=== PATIENT | female | born 1945 | race African-American/Black ===

== ENCOUNTER 2019-08-15 10:53 | Emergency (ER) | payer MEDICARE, MEDICAID, SELFPAY ==
--- NOTE | ~2019-08-15 | CT_ITS ---
EXAMINATION: CT abdomen pelvis wo con DATE: 08/15/2019 11:41 INDICATION: Fever and pain. TECHNIQUE: Computed tomography (CT) of the abdomen and pelvis was performed without intravenous contr ast. The dose-length product was 825.95 mGy-cm. Automated exposure control and iterative reconstructi on technique were employed. COMPARISON: None. FINDINGS: There is left lower lobe atelectasis/scarring. Heart size normal. No significant pleural or pericardial effusion. Small hiatal hernia. Mild thickening of the adrenal glands without discrete ma ss. Calcified granuloma of the liver. The spleen, pancreas, and right kidney are unremarkable. There is a 2 mm nonobstructing left renal stone. There are gallstones. There is moderate diffuse atherosclerosis there are degenerative changes of the hips and lumbar spine . Nonobstructive bowel gas pattern. Small fat-containing umbilical hernia. IMPRESSION: 1. Nonobstructing left nephrolithiasis. 2: Cholelithiasis. 3: Left lower lobe atelectasis/scarring. Reviewed, dictated and finalized at location B. [employer]
[2019-08-15 11:00] VITALS: BP 130/110; PULSE 97; RESP 16; TEMP 37.9; O2SAT 98
[2019-08-15 11:28] VITALS: BP 130/110; PULSE 97; RESP 16; TEMP 37.9; O2SAT 98
[2019-08-15 11:32] LABS: Basophils Percent Auto 0.5 % (0.2-1.2); Eosinophils Absolute Auto 0.4 K/mm3 (0-0.3); Eosinophils Percent Auto 6.1 % (0-4.4); Hemoglobin 11.9 g/dL (12.0-15.0); Immature Granulocyte Absolute 0.01 K/mm3 (0.00-0.031); Immature Granulocyte Percent A 0.2 % (0-0.5); Lymphocytes Absolute Auto 0.65 K/mm3 (0.9-3.2); Lymphocytes Percent Auto 10.2 % (18.3-44.2); Mean Corpuscular HGB Conc 32.2 g/dl (32-36); Mean Corpuscular Hemoglobin 30.9 pg (26-34); Mean Corpuscular Volume 96.1 fl (80-100); Mean Platelet Volume 9.4 fl (7.4-10.4); Monocytes Absolute Auto 0.5 K/mm3 (0.1-0.6); Monocytes Percent Auto 7.5 % (2.6-8.5); Neutrophils Absolute Auto 4.8 K/mm3 (1.3-6.7); Neutrophils Percent Auto 75.5 % (45.5-73.1); Platelet Count Result 232 k/mm3 (150-375); Red Blood Count 3.85 M/mm3 (4.2-5.4); Red Cell Distribution Width 12.8 % (11.5-14.5); White Blood Count 6.4 K/mm3 (4.5-10.0)
--- NOTE | 2019-08-15 11:32 | ED.BACK ---
HPI - Back Pain/Injury General Chief Complaint: Back Pain/Injury Stated Complaint: Back Pain Time Seen by Provider: 08/15/19 11:12 Source: patient Mode of arrival: ambulatory Limitations: no limitations History of Present Illness HPI Narrative: Patient is a 73-year-old female who presents to emergency department for evaluation of low back pain coupled with chills and sweats low-grade fever. Patient notes mild aching pain across the lower lumbar region that does not radiate. Patient does note nausea but denies emesis diarrhea urinary symptoms. Patient was seen a few days ago at the urgent care started on Macrobid but she has been on since the weekend and notes no improvement. Related Data Allergies Allergy/AdvReac Type Severity Reaction Status Date / Time No Known Allergies Allergy Unverified 11/03/16 16:59 Review of Systems Review of Systems: All systems reviewed & are unremarkable except as noted in HPI and below PMFSH Past Medical History Medical History Arthritis Exam Narrative: Exam Narrative: GENERAL: Well-appearing, well-nourished, and in no acute distress. HEAD: Normocephalic, atraumatic. EYES: PERRLA and EOMI. ENT: Nares clear, no rhinorrhea or epistaxis. Mucous membranes moist. Oropharynx without tonsillar hypertrophy exudate or other lesions. NECK: Supple. No adenopathy or masses. CHEST: Clear to auscultation. No respiratory distress. No wheezes rales or rhonchi HEART: Regular rate and rhythm. No murmur heard. Normal peripheral pulses. ABDOMEN: Soft, nontender, nondistended EXTREMITIES: Normal range of motion. No edema. Tenderness across the lower lumbar spine SKIN: Warm, dry, no rash. NEURO: No focal deficits. Alert and oriented x3. Cranial nerves II through XII grossly intact PSYCH: Normal mood and affect. Course Course Emergency Course: Patient in the room in no distress aware of case findings treatment plan and diagnosis Vital Signs Vital signs: Vital Signs Temperature 100.3 F H 08/15/19 11:00 Pulse Rate 97 08/15/19 11:00 Respiratory Rate 16 08/15/19 11:00 Blood Pressure 130/110 H 08/15/19 11:00 Pulse Oximetry 98 08/15/19 11:00 Temperature 98.7 F 08/15/19 12:26 Pulse Rate 97 08/15/19 11:28 Respiratory Rate 16 08/15/19 11:28 Blood Pressure 130/110 H 08/15/19 11:28 Pulse Oximetry 98 08/15/19 11:28 MDM - Back Pain/Injury MDM Narrative Medical decision making narrative: Patients pain is positional in nature and localized to back without signs of cord compression or cauda equina based on neurological exam, skeletal exam and history. Patient could be getting over her urinary tract infection as the etiology of her symptoms. No pulsatile masses noted on exam. Patient ambulates with steady gait and is stable for outpatient management given case findings. Lab Data Result diagrams: 08/15/19 11:20 08/15/19 11:20 Labs: Lab Results 08/15/19 08/15/19 08/15/19 Range/Units 11:20 11:20 11:20 WBC 6.4 (4.5-10.0) K/mm3 RBC 3.85 L (4.2-5.4) M/mm3 Hgb 11.9 L (12.0-15.0) g/dL Hct 37.0 (37.0-47.0) % MCV 96.1 (80-100) fl MCH 30.9 (26-34) pg MCHC 32.2 (32-36) g/dl RDW 12.8 (11.5-14.5) % Plt Count 232 (150-375) k/mm3 MPV 9.4 (7.4-10.4) fl Immature Gran % (Auto) 0.2 (0-0.5) % Neut % (Auto) 75.5 H (45.5-73.1) % Lymph % (Auto) 10.2 L (18.3-44.2) % [place] % (Auto) 7.5 (2.6-8.5) % Eos % (Auto) 6.1 H (0-4.4) % Baso % (Auto) 0.5 (0.2-1.2) % Lymph # (Auto) 0.65 L (0.9-3.2) K/mm3 [place] # (Auto) 0.5 (0.1-0.6) K/mm3 Eos # (Auto) 0.4 H (0-0.3) K/mm3 Baso # (Auto) 0.0 (0.0-0.1) K/mm3 Abs Immat Gran (auto) 0.01 (0.00-0.031) K/mm3 Absolute Neuts (auto) 4.8 (1.3-6.7) K/mm3 Absolute Nucleated RBC 0.0 (0.0-0.012) K/mm3 Nucleated RBC % 0.0 (0.0-0.2) % Sodium 138 (137-145) mmol
[2019-08-15 11:43] LABS: Alanine Aminotransferase 12 U/L (4-35); Albumin Level 4.1 g/dL (3.5-5.1); Alkaline Phosphatase 100 U/L (38-126); Aspartate Amino Transferase 22 U/L (14-36); Bilirubin,Total 0.4 mg/dL (0.2-1.3); Blood Urea Nitrogen 19 mg/dL (7-17); Calcium 9.2 mg/dL (8.4-10.2); Carbon Dioxide 29 mmol/L (22-30); Chloride 103 mmol/L (98-107); Estimated CRCL calculation 52 ml/min; Estimated Glomerular Filt Rate > 60; Glucose 85 mg/dL (65-105); Lipase 35 U/L (23-300); Potassium 3.6 mmol/L (3.4-5.0); Sodium 138 mmol/L (137-145)
[2019-08-15 11:45] LABS: Add Urine Microscopic? YES; Appearance Urine Clear (Clear); Bilirubin Urine Negative (Negative); Blood Urine 1+ (Negative); Color Urine Yellow (Yellow); Glucose Urine UA Negative (Negative); Ketones Urine 1+ mg/dL (Negative); Leukocyte Esterase Ur Trace LEU/UL (Negative); Mucus Urine Rare /lpf; Nitrate Urine Negative (Negative); Protein Urine Negative (Negative); Specific Grav Ur 1.024 (1.001-1.035); Squamous Epithelial Cell Urine Few /hpf (Few); WBC Urine 0-3 /hpf
[2019-08-15] MEDS: SODIUM CHLORIDE 0.9% IV 1,000 ML 999 ML IV CONT (11:57)
[2019-08-15 12:21] VITALS: TEMP 37.8
[2019-08-15 12:26] VITALS: TEMP 37.1
[2019-08-15] MEDS: KETOROLAC 15 MG/ML VIAL (*BKC) IV PUSH (13:30)
[2019-08-15 13:40] VITALS: BP 135/70; PULSE 67; RESP 12; O2SAT 99
== END 2019-08-15 13:41 | disposition home or self-care (01) ==
PROVIDERS: Emergency Medicine Emergency Medical Services; Emergency Provider Emergency Medicine; PCP Internal Medicine
DX: M54.5 Low back pain (principal); M19.90 Unspecified osteoarthritis, unspecified site; K80.20 Calculus of gallbladder without cholecystitis without obstruction; N20.0 Calculus of kidney
CPT/HCPCS: 36415; 74176; 80053; 81001; 83690; 85025; 87804; 96361; 96374; 96375; 99284; J0131; J1885; J7030

== ENCOUNTER 2019-08-29 10:16 | Outpatient (CLI) | payer MEDICARE, MEDICAID, SELFPAY ==
--- NOTE | ~2019-08-29 | MR_ITS ---
EXAMINATION: MR lumbar spine wo con EXAM DATE: 08/29/2019 11:13 INDICATION: Chronic low back pain radiating to buttocks. Bilateral leg pain. TECHNIQUE: Multi-sequential, multiplanar MR images of the lumbar spine were obtained without contrast . Sagittal T1, T2, T2 fat saturation images. Axial T2 weighted images. There is no prior study for comparison. FINDINGS: Mild to moderate disc disease at L5-S1 with 2 mm retrolisthesis. There is mild disc disease L3-4 and L4-5 with 2-3 mm anterolisthesis at both of these levels. The conus medullaris terminates a t the L1/2 level and has normal signal intensity and morphology. There are no suspicious marrow sign al abnormalities. Paraspinal soft tissue is unremarkable. Level by level evaluation: T12-L1: Disc does not extend beyond the endplate margin. Facet arthropathy: Minimal. Neural foraminal stenosis: No stenosis. Central canal stenosis: No stenosis. L1-L2: There is a minimal diffuse disc bulge. Facet arthropathy: Mild. Neural foraminal stenosis: Mild to moderate left, mild right. Central canal stenosis: No stenosis. L2-L3: There is a mild diffuse disc bulge. Facet arthropathy: Moderate . Ligamentum flavum enlargement. Neural foraminal stenosis: Moderate left, mild to moderate right. Central canal stenosis: Mild to moderate. L3-L4: There is a mild to moderate diffuse disc bulge. Facet arthropathy: Moderate to severe . Ligamentum flavum enlargement. Neural foraminal stenosis: Mild to moderate right, mild left. Central canal stenosis: Severe. L4-L5: There is a large diffuse disc bulge. Facet arthropathy: Moderate to severe. Neural foraminal stenosis: Moderate bilateral. Central canal stenosis: Moderate to severe, particularly lateral recesses. L5-S1: There is a moderate diffuse disc bulge. Facet arthropathy: Mild to moderate. Neural foraminal stenosis: Moderate right, mild to moderate left. Central canal stenosis: Mild to moderate. IMPRESSION: 1. Significant central canal stenosis L3-4 and L4-5 with grade 1 anterolistheses at these levels. Reviewed, dictated and finalized at location A. IMPRESSION: 1. Significant central canal stenosis L3-4 and L4-5 with grade 1 anterolisthes es at these levels.
== END 2019-08-29 10:17 | disposition home or self-care (01) ==
PROVIDERS: PCP Internal Medicine; Visit Provider Internal Medicine
DX: M54.5 Low back pain (principal)
CPT/HCPCS: 72148

== ENCOUNTER → 2023-02-07 10:26 | Outpatient (CLI) | payer MEDICARE, MEDICAID, SELFPAY ==
--- NOTE | ~2023-02-07 | MR_ITS ---
MRI of the lumbar spine Clinical History: Spinal stenosis Technique: Axial T2-weighted images, and sagittal T1-weighted, T2-weighted, and and T2 fat-sat images were acquired. COMPARISON: 08/29/2019 Findings: No fracture identified. Minimal grade 1 anterolisthesis of L4 over L5 present. Minimal grad e 1 anterolisthesis of L3 over L4 present. No suspicious bone marrow signal abnormality seen. At L1-L2, there is no disc bulge or herniation. There is moderate facet arthropathy. No spinal canal stenosis. There is moderate bilateral neural foraminal narrowing. At L2-L3, there is minimal disc bulge with moderate to advanced facet arthropathy. There is mild to m oderate central canal stenosis. There is severe bilateral neural foraminal narrowing. L3-L4, there is disc bulge and severe facet arthropathy, severe central canal stenosis/thecal sac com pression. There is moderate bilateral neural foraminal narrowing. At L4-L5, there is disc bulge and severe facet arthropathy, severe central canal stenosis/thecal sac compression. There is severe left neural foraminal narrowing, and moderate to severe right neural for aminal narrowing. L5-S1, there is disc bulge and mild facet arthropathy. No central canal stenosis. There is severe rig ht neural foraminal narrowing, and moderate left neural foraminal narrowing. Paravertebral soft tissues are unremarkable. Impression: Severe degenerative spondylosis, as detailed above. Findings are probably worst at L3-L4 and L4-L5. Reviewed, dictated and finalized at [facility]. Impression: Severe degenerative spondylosis, as detailed above. Findings are probably worst at L3-L4 and L4-L5.
== END ==
PROVIDERS: PCP Internal Medicine; Visit Provider Anesthesiology Pain Medicine
DX: M48.062 Spinal stenosis, lumbar region with neurogenic claudication (principal); M47.896 Other spondylosis, lumbar region
CPT/HCPCS: 72148

== ENCOUNTER 2025-06-07 08:45 | Emergency (ER) | payer MEDICARE, MEDICAID, SELFPAY ==
--- NOTE | ~2025-06-07 | XR_ITS ---
Examination: XR chest 2V Clinical History: SOA Comparison: None Technique: PA and Lateral Findings: Heart size upper limit of normal. Tiny patchy opacity right base. No acute bony abnormality. IMPRESSION: 1. Tiny right basilar atelectasis and/or airspace opacity. Reviewed, dictated and finalized at location R. [employer]
--- OUTSIDE RECORDS SUMMARY | 2025-06-07 08:49 | XMS_ITS | Clinical Summary ---
Author Organization [facility] [employer] Address [address] [place] [address] Care Team Providers Care Fitter Mechanic Name Role Phone Merritt Ontiveros MD Primary Care Provider [phone] Source Comments [facility],non-owned Affiliates and Associated Physician Practices is amultiple site organization consisting of ambulatory clinics and hospital sitesin [place], [place], [place] and [place]. This disclosure is being madepursuant to the Care Everywhere program and may not contain all information available regarding this patient. Last updated 18.[facility] [employer] Allergies No known active allergies Medications * Be aware that medications may not be up to date on this document. Alwaysverify current medications with the patient. citalopram (CELEXA) 20 MG tablet Take 20 mg by mouth once daily Reported on 07/22/2016 Active lisinopril-hydr oCHLOROthiazide (PRINZIDE; ZESTORETIC) 10-12.5 MG tablet Take 1 Tab by mouth once daily 07/22/2016 Active montelukast (SINGULAIR) 10 MG tablet Take 1 Tab by mouth once daily 0 07/22/2016 Active ferrous sulfate EC 325 (65 FE) MG tablet Take 1 Tab by mouth 3 times daily with meals 90 Tab 07/22/2016 Active meclizine (ANTIVERT) 12.5 MG tablet Take 1 tablet by mouth 3 times daily as needed 60 tablet 04/14/2017 Active Active Problems Problem Noted Date Diagnosed Date Nephrolithiasis 07/22/2016 Neutropenia 07/22/2016 Anemia 07/22/2016 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 Overview (07/22/2016): Seen on chest x-ray from [facility] 07/04/2016 Diaphragmatic hernia without obstruction or gang samina 07/05/2016 Vitamin D deficiency 07/05/2016 Acute recurrent pansinusitis 07/05/2016 Migraine 12/18/2013 Hypertension Depression with anxiety Hyperlipidemia Immunizations Immunization Administration Dates Next Due FLU VACCINE QUAD IIV4 SPLIT 0.25 ML IM 7 PNEUMOCOCCAL PPSV23 07/07/2016,12/18/2013 Family History Medical History Relation Name Comments Hypertension Father Hypertension Sister 1 Hypertension Sister 2 Relation Name Status Comments Father Maternal Grandfather Maternal Grandmother Mother Paternal Grandfather Paternal Grandmother Sister 1 Sister 2 Social History Tobacco Use Types Packs/Day Years Used Date Smoking Tobacco: Every Day Cigarettes 0.5 20 Smokeless Tobacco: Never Tobacco Cessation:Ready to Q uit: Yes; Counseling Given: Yes Alcohol Use Standard Drinks/Week Comments No 0 (1 standard drink = 0.6 oz pur e alcohol) Comments No Sex and Gender Information Value Date Recorded Sex Assigned at Not on file Legal Sex Female 4:15 PM CDT Gender Identity Not on file Sexual Orientation Not on file Last Filed Vital Signs Vital Sign Reading Time Taken Comments Blood Pressure 133/83 07/22/2016 10:30 AM CASH APPLICATIONS MANAGER Pulse 83 07/22/2016 10:30 AM CASH APPLICATIONS MANAGER Temperature 36.9 C (98.4 F) 07/22/2016 10:30 AM CASH APPLICATIONS MANAGER Respiratory Rate - - Oxygen Saturation - - Inhaled Oxygen Concentration - - Weight 86.4 kg (190 lb 6.4 oz) 07/22/2016 10:30 AM CASH APPLICATIONS MANAGER Height 165.1 cm (5' 5) 07/22/2016 10:30 AM CASH APPLICATIONS MANAGER Body Mass Index 31.68 07/22/2016 10:30 AM CASH APPLICATIONS MANAGER Plan of Treatment Health Maintenance Due Date Last Done Comments BONE DENSITY TESTING 1945 MEDICARE AWV 12 MONTHS 1945 DTAP/TDAP/TD VACCINES (1 - Tdap) 11/04/1962 ZOSTER VACCINE (1 of 2) 11/04/1993 PNEUMOCOCCAL VACCINE 50+ (2 of 2 - PCV) 07/07/2017 07/07/2016, 12/18/2013 Respiratory Syncytial Virus (RSV) Vaccine Pt: or over 60 yrs (1 - 1-dose 75+ series) 11/04/2018 DEPRESSION SCREENING 06/13/2024 COVID-19 VACCINE ( season) 2025 12/01/2021, 04/25/2021, 09/01/2020, Additional history exists INFLUENZA VACCINE (#1) 2025 , 03/31/2018, 07/07/2016, Additional history exists HEPATITIS B VACCINE Aged Out No longe r eligible based on patient's age to complete this topic HIB VACCINE Aged Out No longer eligi ble based on patient's age to complete this topic HPV VACCINE Aged Out No longer eligi ble based on patient's age to complete this topic MENINGOCOCCAL (Group B) VACCINE SHARED DECISION-MAKING Aged Out No longer eligible based on patient's age to complete this topic MENINGOCOCCAL GROUPS A/C/Y/W VACCINE Aged Out No longer eligible based on patient's age to complete this topic Goals Goal Patient Goal Type Associated Problems Recent Progress Patient-Stated? Author Blood Pressure < 140/90 Blood Pressure 133/83(2016 10:30 AM CASH APPLICATIONS MANAGER) No Claudia Javier MA Quit smoking / using tobacco Lifestyle No Claudia Javier MA Insurance MEDICARE MEDICAID - [place] Care Teams Fitter Mechanic Relationship Specialty Start Date End Date Merritt Ontiveros MD [address] [place] [address] PCP - General Internal Medicine 06/11/24
--- OUTSIDE RECORDS SUMMARY | 2025-06-07 08:49 | XMS_ITS | Clinical Summary ---
Author Organization [facility] Address [address] [place] [address] Phone Care Team Providers Care Comber Fixer Name Role Phone Merritt Ontiveros MD Primary Care Provider [phone] Allergies No known active allergies Medications No known medications Active Problems Problem Noted Date Diagnosed Date Depression with anxiety 10/28/2024 Hyperlipidemia 12/03/2022 Leukopenia 12/03/2022 Bilateral carpal tunnel syndrome 08/03/2021 Dyslipidemia 01/10/2019 Essential hypertension 01/09/2017 Anemia 07/22/2016 Acute recurrent pansinusitis 07/05/2016 Diaphragmatic hernia without obstruction or gang samina 07/05/2016 Social History Tobacco Use Types Packs/Day Years Used Date Smoking Tobacco: Never Assessed Comments Unknown Sex and Gender Information Value Date Recorded Sex Assigned at Not on file Legal Sex Female 12:22 AM CDT Gender Identity Not on file Sexual Orientation Not on file Last Filed Vital Signs Vital Sign Reading Time Taken Comments Blood Pressure 126/81 10/28/2024 12:39 PM CDT Pulse 71 10/28/2024 12:39 PM CDT Temperature 36.8 C (98.2 F) 10/28/2024 12:39 PM CDT Respiratory Rate 20 10/28/2024 12:39 PM CDT Oxygen Saturation 96% 10/28/2024 12:39 PM CDT Inhaled Oxygen Concentration - - Weight 77.1 kg (170 lb) 10/28/2024 12:39 PM CDT Height 165.1 cm (5' 5) 03/02/2024 12:17 PM CDT Body Mass Index 28.29 03/02/2024 12:17 PM CDT Plan of Treatment Health Maintenance Due Date Last Done Comments DEXA Bone Density 1945 Hepatitis C Virus (HCV) Screening 1945 TdaP Immunization 1945 Zoster Immunization (1 of 2) 11/04/1993 Respiratory Syncytial Virus (RSV) Immunization (Adult) (1 - 1-dose 75+ series) 11/04/2018 Medicare Initial AWV [id number] 09/11/2024 Influenza Immunization (#1) 02/11/202505/13, 03/31/2018, 07/07/2016, Additional history exists SARS-COV-2 Immunization (2024- season) 2025 12/01/2021, 04/25/2021, 09/01/2020, Additional history exists Pneumococcal Immunization (50+ years) Completed 05/29/2024, 07/07/2016, 12/18/2013 Hepatitis B Immunization Aged Out No longer eligible based on patient's age to complete this topic Human Papillomavirus (HPV) Immunization (No Doses Required) Completed Meningococcal Immunization (ACWY) Aged Out No longer eligible based on patient's age to complete this topic Rotavirus Immunization Aged Out No lo nger eligible based on patient's age to complete this topic Insurance MEDICARE C [employer] [place]ICAID [place] Care Teams Comber Fixer Relationship Specialty Start Date End Date Merritt Ontiveros MD [address] [place] [address] PCP - General Internal Medicine 03/02/24
--- OUTSIDE RECORDS SUMMARY | 2025-06-07 08:49 | XMS_ITS | Encounter Summary ---
Author Organization [facility] Address [address] [place] [address] Care Team Providers Care Account Services Coordinator Name Role Phone Kiara Stokes MD Primary Care Provider [phone] Merritt Ontiveros MD Primary Care Provider [phone] Encounter Details Date Type Department Care Team (Late st Contact Info) Description 12/18/2013 SS Outpatient Visit EXTERNAL NON-SS DEPT Kiara Stokes MD [address] [place] [phone] Social History Tobacco Use Types Packs/Day Years Used Date Smoking Tobacco: Every Day Cigarettes 0.5 20 Smokeless Tobacco: Never Alcohol Use Standard Drinks/Week Comments No 0 (1 standard drink = 0.6 oz pur e alcohol) Comments No Sex and Gender Information Value Date Recorded Sex Assigned at Not on file Legal Sex Female 4:15 PM CDT Gender Identity Not on file Sexual Orientation Not on file documented as of this encounter Plan of Treatment Not on file documented as of this encounter Visit Diagnoses Not on filedocumented in this encounter Care Teams Account Services Coordinator Relationship Specialty Start Date End Date Kiara Stokes MD PCP - General Family Medicine 12/06/13 06/10/24 Merritt Ontiveros MD [address] [place] [id number] PCP - General Internal Medicine 06/11/24 documented as of this encounter
--- OUTSIDE RECORDS SUMMARY | 2025-06-07 09:36 | XMS_ITS | Clinical Summary ---
Author Organization [facility] [employer] Address [address] [place] [address] Care Team Providers Care Generator Mechanic Name Role Phone Merritt Ontiveros MD Primary Care Provider [phone] Source Comments [facility],non-owned Affiliates and Associated Physician Practices is amultiple site organization consisting of ambulatory clinics and hospital sitesin [place], [place] and [place]. This disclosure is being madepursuant to the Care Everywhere program and may not contain all information available regarding this patient. Last updated 18.[facility] [employer] Allergies No known active allergies Medications * [...] [facility] 07/04/2016 Diaphragmatic hernia without obstruction or gang [...] Comments Blood Pressure 133/83 07/22/2016 10:30 AM COMPLETIONS MANAGER Pulse 83 07/22/2016 10:30 AM COMPLETIONS MANAGER Temperature 36.9 C (98.4 F) 07/22/2016 10:30 AM COMPLETIONS MANAGER Respiratory Rate - - Oxygen Saturation - - Inhaled Oxygen Concentration - - Weight 86.4 kg (190 lb 6.4 oz) 07/22/2016 10:30 AM COMPLETIONS MANAGER Height 165.1 cm (5' 5) 07/22/2016 10:30 AM COMPLETIONS MANAGER Body Mass Index 31.68 07/22/2016 10:30 AM COMPLETIONS MANAGER Plan of Treatment Health Maintenance Due [...] < 140/90 Blood Pressure 133/83(2016 10:30 AM COMPLETIONS MANAGER) No Claudia Javier MA Quit smoking / using tobacco Lifestyle No Claudia Javier MA Insurance MEDICARE MEDICAID - [place] Care Teams Generator Mechanic Relationship Specialty Start Date End Date Merritt Ontiveros MD [address] [place] [address] PCP - General Internal Medicine 06/11/24
--- OUTSIDE RECORDS SUMMARY | 2025-06-07 09:36 | XMS_ITS | Encounter Summary ---
Author Organization [facility] Address [address] [address] Care Team Providers Care Mechanical Piping Designer Name Role Phone Kiara Stokes MD Primary Care Provider [phone] Merritt Ontiveros MD Primary Care Provider Encounter Details Date Type Department Care Team (Late st Contact Info) Description 12/18/2013 SS Outpatient Visit EXTERNAL NON-SS DEPT Kiara Stokes MD [address] [place] [phone] Social History Tobacco Use Types Packs/Day Years [...] on filedocumented in this encounter Care Teams Mechanical Piping Designer Relationship Specialty Start Date End Date Kiara Stokes MD PCP - General Family Medicine 12/06/13 06/10/24 Merritt Ontiveros MD [address] [place] [id number] PCP - General Internal Medicine 06/11/24 documented as of this encounter
[2025-06-07 09:39] VITALS: BP 148/80; PULSE 93; RESP 17; TEMP 39.3; O2SAT 98
[2025-06-07] MEDS: ACETAMINOPHEN 500 MG TABLET 1000 MG PO (09:59)
[2025-06-07] MEDS: SODIUM CHLORIDE 0.9% IV 400 ML 999 ML IV CONT (09:59)
[2025-06-07] MEDS: SODIUM CHLORIDE 0.9% IV 1,000 ML 999 ML IV CONT ×2 (09:59)
[2025-06-07 10:00] LABS: Hematocrit 34.1 % (37.0-47.0); Hemoglobin 11.2 g/dL (12.0-15.0); Immature Granulocyte Percent A 0.5 % (0-0.5); Lymphocytes Absolute Auto 0.72 K/mm3 (0.9-3.2); Mean Corpuscular HGB Conc 32.8 g/dl (32-36); Mean Corpuscular Hemoglobin 32.4 pg (26-34); Mean Corpuscular Volume 98.6 fl (80-100); Nucleated Red Blood Cells Absolute Auto 0.000 K/mm3 (0.0-0.012); Nucleated Red Blood Cells Perc 0.0 % (0.0-0.2); Platelet Count Result 211 k/mm3 (150-375); Red Blood Count 3.46 M/mm3 (4.2-5.4); White Blood Count 4.3 K/mm3 (4.5-10.0)
[2025-06-07 10:13] LABS: INR 1.1; Prothrombin Time 13.8 Seconds (11.1-14.7)
[2025-06-07 10:14] LABS: Partial Thromboplastin Time 28.1 Seconds (22.3-36.8)
--- NOTE | 2025-06-07 10:20 | ED_ITS ---
HPI - General Adult General Chief complaint: Unspecified Stated complaint: not feeling good Time Seen by Provider: 06/07/25 09:30 History of Present Illness HPI narrative: Patient is an 79-year-old female who presents ER with weakness, cough, and fever. Patient had a fall last week and has had some right-sided anterior chest pain. She had evaluation and no fracture was found. She started having cough over last few days. No nausea or vomiting. Patient febrile to 102.8? F here. No known sick contacts. The worse the illness began today. Related Data Allergies Allergy/AdvReac Type Severity Reaction Status Date / Time No Known Allergies Allergy Verified 06/07/25 08:49 Review of Systems 2 Review of Systems: All systems reviewed & are unremarkable except as noted in HPI and below Constitutional: Constitutional: Reports no additional constitutional complaints ENT: Reports system reviewed and no additional complaints, except as documented Cardiovascular: Cardiovascular: Reports no additional cardiovascular complaints Respiratory: Respiratory: Reports no additional respiratory complaints Gastrointestinal: Gastrointestinal: Reports no additional gastrointestinal complaints [facility] Past Medical History Medical History (Updated 06/07/25 @ 12:48 by Jaden Norman MD) Hypertension Arthritis Surgical History Surgical History (Updated 06/07/25 @ 10:50 by Jaden Norman MD) History of appendectomy Exam 2 Narrative: GENERAL: Ill-appearing, well-nourished, and in mild distress. HEAD: Normocephalic, atraumatic. EYES: PERRL and EOMI. ENT: Mucous membranes moist. CHEST: Clear to auscultation. No respiratory distress. Mild tenderness palpation right anterior chest wall HEART: Regular rate and rhythm. Normal peripheral pulses. ABDOMEN: Soft, nontender, nondistended. EXTREMITIES: Normal range of motion. No edema. SKIN: Warm, dry, no rash. NEURO: Alert and oriented x3. PSYCH: Anxious appearing with normal thought content. Course Course Emergency Course: Fever treated with Tylenol. Patient is COVID positive. She ambulates with a steady gait and no hypoxia. She will be prescribed Paxil the home. Recommend scheduled Tylenol to keep fever at [place]. Received aggressive hydration in the ER. Vital Signs Vital signs: Vital Signs Temperature 102.8 F H 06/07/25 09:39 Pulse Rate 93 06/07/25 09:39 Respiratory Rate 17 06/07/25 09:39 Blood Pressure 148/80 H 06/07/25 09:39 Pulse Oximetry 98 06/07/25 09:39 Oxygen Delivery Room Air 06/07/25 09:39 Temperature 100.4 F H 06/07/25 10:48 Pulse Rate 92 06/07/25 10:48 Respiratory Rate 20 06/07/25 10:50 Blood Pressure 133/71 06/07/25 10:48 Pulse Oximetry 100 06/07/25 10:48 Oxygen Delivery Room Air 06/07/25 09:39 MDM Differential Diagnosis Differential Diagnosis: Pneumonia, sepsis, COVID, influenza, JOSE, dehydration Medical Records I have reviewed the following patient records and this information was taken into consideration when formulating the assessment and plan.: previous labs and previous ER visits Lab Data MDM Lab Attestation statement: I personally reviewed the patient's lab results. 06/07/25 09:49 06/07/25 09:49 Labs: Lab Results 06/07/25 06/07/25 Range/Units 09:49 11:09 WBC 4.3 L (4.5-10.0) K/mm3 RBC 3.46 L (4.2-5.4) M/mm3 Hgb 11.2 L (12.0-15.0) g/dL Hct 34.1 L (37.0-47.0) % MCV 98.6 (80-100) fl MCH 32.4 (26-34) pg MCHC 32.8 (32-36) g/dl RDW 13.0 (11.5-14.5) % Plt Count 211 (150-375) k/mm3 MPV 9.3 (7.4-10.4) fl Immature Gran % (Auto) 0.5 (0-0.5) % Neut % (Auto) 71.9 (45.5-73.1) % Lymph % (Auto) 16.6 L (18.3-44.2) % [place] % (Auto) 10.1 H (2.6-8.5) % Eos % (Auto) 0.2 (0-4.4) % Baso % (Auto) 0.7 (0.2-1.2) % Lymph # (Auto) 0.72 L (0.9-3.2) K/mm3 [place] # (Auto) 0.4 (0.1-0.6) K/mm3 Eos # (Auto) 0.0 (0-0.3) K/mm3 Baso # (Auto) 0.0 (0.0-0.1) K/mm3 Abs Immat Gran (auto) 0.02 (0.00-0.031) K/mm3 Absolute Neuts (auto) 3.1 (1.3-6.7) K/mm3 Absolute Nucleated RBC 0.000 (0.0-0.012) K/mm3 Nucleated RBC % 0.0 (0.0-0.2) % PT 13.8 (11.1-14.7) Seconds INR 1.1 APTT 28.1 (22.3-36.8) Seconds Sodium 134 L (137-145) mmol/L Potassium 3.8 (3.4-5.0) mmol/L Chloride 102 (98-107) mmol/L Carbon Dioxide 27 (22-30) mmol/L Anion Gap 5 (4-12) mmol/L BUN 18 H (7-17) mg/dL Creatinine 0.92 (0.7-1.0) mg/dL Estim Creat Clear Calc 42 ml/min Estimated GFR 59 (59 - ) Glucose 91 (65-110) mg/dL Lactic Acid 0.7 (0.7-2.0) mmol/L Calcium 8.9 (8.4-10.2) mg/dL Total Bilirubin 0.7 (0.2-1.3) mg/dL AST 31 (14-36) U/L ALT 16 (6-35) U/L Alkaline Phosphatase 110 (38-126) U/L C-Reactive Protein 2.6 H (<1.0) mg/dL Total Protein 7.3 (6.3-8.2) g/dL Albumin 3.9 (3.5-5.1) g/dL Urine Color Yellow (Yellow) Urine Appearance Cloudy H (Clear) Urine pH >=9.0 H (5.0-9.0) Ur Specific [place] 1.017 (1.001-1.035) Urine Protein Trace (Negative) mg/dL Urine Glucose (UA) Negative (Negative) mg/dL Urine Ketones Negative (Negative) mg/dL Ur Blood (Man) Negative (Negative) Urine Nitrate Negative (Negative) Urine Bilirubin Negative (Negative) Urine Urobilinogen 0.2 (<2.0) mg/dL Add Ur Microanalysis Reviewed Leukocyte Esterase Rfl Trace H (Negative) JACKY/UL Urine RBC 6-10 H (0-2) /hpf Urine WBC 0-5 (0-3) /hpf Ur Squamous Epith Cells Occasional (Few) /hpf Urine Bacteria None seen /hpf Urine Casts 0-2 Influenza A (RT-PCR) Negative (Negative) Influenza B (RT-PCR) Negative (Negative) RSV (RT-PCR) Negative (Negative) SARS-CoV-2 RNA (RT-PCR) Positive A (Negative) Imaging Data Attestation: I personally reviewed and interpreted this imaging study as follows: Radiologist's impression: ITS Impressions Chest X-Ray 06/07/25 10:31 IMPRESSION: 1. Tiny right basilar atelectasis and/or airspace opacity. Discharge Plan Discharge Clinical Impression: COVID Patient Disposition: Still a Patient Condition: Stable Instructions: COVID-19 (Coronavirus Disease 2019) (ED) Additional Instructions: Return ER if you have worsening shortness of breath, you cannot keep down food or water he developed chest pain with shortness of breath, or you have additional concerns. Take Tylenol 650 mg every 6 hours to help prevent fever and help with body aches. Take paxlovid to decrease the severity of your disease. Patient Language: Peruvian Prescriptions: New Paxlovid 300 mg (150 mg x 2)-100 mg tablets,dose pack See Rx Instructions .ROUTE .COMPLEX Qty: 30 0RF Rx Instructions: take TWO 150 mg tablets of nirmatrelvir with ONE 100 mg tablet of ritonavir twice daily for 5 days acetaminophen 325 mg capsule 650 mg PO Q6H 5 Days Qty: 40 0RF ondansetron 4 mg tablet,disintegrating 4 mg PO Q6H PRN (Reason: nausea and vomiting) Qty: 10 0RF No Action acetaminophen [Tylenol Arthritis Pain] 650 mg tablet extended release 650 mg PO Q8H PRN (Reason: fever or pain) Qty: 14 0RF Follow-up/Referrals: Weston,MD Merritt [Primary Care Provider] - 1 Week
[2025-06-07 10:28] LABS: Add Urine Microscopic? YES; Appearance Urine Cloudy (Clear); Glucose Urine UA Negative (Negative); Leukocyte Esterase Ur Trace LEU/UL (Negative); Need Manual Microscopic Reviewed; Nitrate Urine Negative (Negative); Non Pathogenic Casts 0-2; Specific Grav Ur 1.017 (1.001-1.035)
[2025-06-07 10:37] LABS: Influenza A QL RT-PCR Negative (Negative); Influenza B QL RT-PCR Negative (Negative); RSV RNA, RT-PCR Negative (Negative); SARS-CoV-2 RNA PCR Positive (Negative)
[2025-06-07 10:38] LABS: Alanine Aminotransferase 16 U/L (6-35); Albumin Level 3.9 g/dL (3.5-5.1); Alkaline Phosphatase 110 U/L (38-126); Anion Gap 5 mmol/L (4-12); Aspartate Amino Transferase 31 U/L (14-36); Bilirubin,Total 0.7 mg/dL (0.2-1.3); Blood Urea Nitrogen 18 mg/dL (7-17); CRP 2.6 mg/dL (<1.0); Calcium 8.9 mg/dL (8.4-10.2); Carbon Dioxide 27 mmol/L (22-30); Chloride 102 mmol/L (98-107); Estimated CRCL calculation 42 ml/min; Estimated Glomerular Filt Rate 59; Glucose 91 mg/dL (65-110); Potassium 3.8 mmol/L (3.4-5.0); Sodium 134 mmol/L (137-145); Total Protein 7.3 g/dL (6.3-8.2)
[2025-06-07 10:48] VITALS: BP 133/71; PULSE 92; RESP 18; TEMP 38; O2SAT 100
[2025-06-07 10:50] VITALS: RESP 20
--- NOTE | 2025-06-07 12:20 | PC.NURSE ---
Patient able to ambulate wtih steady gate. patient pulse ox did not get below 94%.
[2025-06-07 12:57] VITALS: BP 136/78; PULSE 86; RESP 19; O2SAT 96
[2025-06-07 13:06] VITALS: TEMP 37.6
== END 2025-06-07 13:08 | disposition home or self-care (01) ==
PROVIDERS: Emergency Provider Emergency Medicine; PCP Internal Medicine
DX: U07.1 COVID-19 (principal); R07.89 Other chest pain; I10 Essential (primary) hypertension; M19.90 Unspecified osteoarthritis, unspecified site
CPT/HCPCS: 36415; 71046; 80053; 81001; 83605; 85025; 85610; 85730; 86140; 87040; 87637; 96360; 99283; A9270; J7030